=== PATIENT | male | born 1950 | race Caucasian/White ===

== ENCOUNTER 2018-12-03 08:38 | Observation (INO) | payer MEDICARE, MEDICAID ==
[2018-12-03] MEDS ORDERED: ONDANSETRON HCL INJ/PF 4 MG/2 ML SDV IV ONE (09:42)
[2018-12-03] MEDS ORDERED: NORMAL SALINE 1000 ML 1,000 ML IV ONE ×2 (09:42→13:36)
[2018-12-03] MEDS ORDERED: MORPHINE SULFATE 10 MG/ML INJ IV ONE ×2 (09:42→13:27)
--- NOTE | 2018-12-03 10:14 | ER Document Report ---
ED General - General Chief Complaint: Chest Pain Stated Complaint: CHEST PAIN Time Seen by Provider: 12/03/18 09:02 Primary Care Provider: JUDIT JIMÉNEZ MD [Primary Care Provider] - Follow up as needed Mode of Arrival: Ambulatory Information source: Patient TRAVEL OUTSIDE OF THE [place] IN LAST 30 DAYS: No - HPI Notes: Patient is a 68-year-old with history of diabetes and hypercholesterolemia and chronic constipation presents to the emergency department with report of no bowel movement for the last 3 days with initially diffuse upper abdominal pain that went to the right upper quadrant and now seems to radiate somewhat to the right lower chest. The patient denies any difficulty breathing or fever. He did have some nausea and vomiting last night. He does report abdominal bloating. He reports no significant back pain. No fever or chills or dysuria or hematuria. - Related Data Allergies/Adverse Reactions: Penicillins Allergy (Verified 12/03/18 08:39) Past Medical History - General Information source: Patient - Social History Smoking Status: Never Smoker Frequency of alcohol use: Rare Drug Abuse: None Lives with: Family Family History: None Patient has suicidal ideation: No Patient has homicidal ideation: No - Past Medical History Cardiac Medical History: Reports: Hx Hypertension Denies: Hx Coronary Artery Disease Pulmonary Medical History: Denies: Hx Asthma Endocrine Medical History: Reports: Hx Diabetes Mellitus Type 2 Renal/ Medical History: Denies: Hx Peritoneal Dialysis Skin Medical History: Reports Hx Psoriasis Past Surgical History: Reports: Hx Orthopedic Surgery - left shoulder, L TKR, back surgery - Immunizations Hx Diphtheria, Pertussis, Tetanus Vaccination: Yes Review of Systems - Review of Systems -: Yes All other systems reviewed and negative Physical Exam - Vital signs Vitals: Temp Pulse Resp BP Pulse Ox 98 F 88 20 117/72 95 12/03/18 08:49 12/03/18 08:49 12/03/18 08:49 12/03/18 08:49 12/03/18 08:49 - Notes Notes: PHYSICAL EXAMINATION: GENERAL: Well-appearing, well-nourished and in no acute distress. HEAD: Atraumatic, normocephalic. 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 ENT: Nares patent, oropharynx clear without exudates. Moist mucous membranes. NECK: Normal range of motion, supple without lymphadenopathy LUNGS: Breath sounds clear to auscultation bilaterally and equal. No wheezes rales or rhonchi. HEART: Regular rate and rhythm without murmurs ABDOMEN: Soft, mildly distended, tender through the upper abdomen right greater than left. No guarding, no rebound. No masses appreciated. Positive Brito's. Patient's pain extends to the right lower chest wall region that he describes. Musculoskeletal: Normal range of motion, no pitting or edema. No cyanosis. NEUROLOGICAL: Cranial nerves grossly intact. Normal speech, normal gait. Normal sensory, motor exams PSYCH: Normal mood, normal affect. SKIN: Warm, Dry, normal turgor, no rashes or lesions noted. Course - Re-evaluation Re-evalutation: 12/03/18 11:02 Patient was given normal saline bolus and Zofran and morphine with some relief of his discomfort. 12/03/18 15:33 CT scan showed evidence for acute cholecystitis and patient's total bilirubin was elevated, but his direct bilirubin was low, suggestive more of a cirrhotic process than a obstructive process. The patient was rehydrated with 2 L of normal saline for his dehydration and an ultrasound was ordered. Patient agreed to admission for further evaluation and care. Discussion was undertaken with surgery Dr. Ferrari, who agreed to see and evaluate the patient further. White blood cell count was elevated and the patient was given IV Mefoxin after blood cultures were taken. Patient had a penicillin allergy. Findings would fit for acute cholecystitis. No evidence for significant diabetic complication or acute kidney injury. No evidence for perforation at this time. No evidence for pancreatitis. No evidence for acute CT or ischemia. - Vital Signs Vital signs: Temp Pulse Resp BP Pulse Ox 98 F 88 28 H 114/56 L 93 12/03/18 08:49 12/03/18 08:49 12/03/18 15:01 12/03/18 15:01 12/03/18 15:01 - Laboratory Result Diagrams: 12/03/18 09:25 12/03/18 09:25 Laboratory results interpreted by me: 12/03/18 12/03/18 12/03/18 09:25 09:25 10:00 WBC 20.1 H Plt Count 127 L Seg Neuts % (Manual) 88 H Lymphocytes % (Manual) 7 L Abs Neuts (Manual) 17.7 H Sodium 136.9 L Glucose 175 H Total Bilirubin 2.8 H Direct Bilirubin 0.7 H Lipase 17.8 L Urine Protein 100 H Urine Ketones TRACE H - EKG Interpretation by Me EKG shows normal: Sinus rhythm Additional EKG results interpreted by me: 12/03/18 11:03 EKG as interpreted by me showed normal sinus rhythm heart rate of 71. There is no gross evidence for acute CT or ischemia noted. Critical Care Note - Critical Care Note Total time excluding time spent on procedures (mins): 37 Discharge - Discharge Clinical Impression: Acute cholecystitis, Dehydration Condition: Stable Disposition: ADMITTED INPATIENT Admitting Provider: Surgicalist Unit Admitted: OR Referrals: JUDIT JIMÉNEZ MD [Primary Care Provider] - Follow up as needed
[2018-12-03 10:19] LABS: HEMATOCRIT 46.3 % (37.9-51.0); HEMOGLOBIN 15.7 g/dL (13.5-17.0); MEAN CORPUSCULAR HEMOGLOBIN 31.4 pg (27.0-33.4); MEAN CORPUSCULAR HGB CONC 33.9 g/dL (32.0-36.0); MEAN CORPUSCULAR VOLUME 93 fl (80-97); WHITE BLOOD COUNT 20.1 10^3/uL (4.0-10.5)
[2018-12-03 10:20] LABS: ALANINE AMINOTRANSFERASE 36 U/L (21-72); ALBUMIN 4.4 g/dL (3.5-5.0); ALKALINE PHOSPHATASE 84 U/L (38-126); ANION GAP 12 (5-19); ASPARTATE AMINO TRANSFERASE 27 U/L (17-59); BILIRUBIN,DIRECT 0.7 mg/dL (0.0-0.4); BILIRUBIN,TOTAL 2.8 mg/dL (0.2-1.3); BLOOD UREA NITROGEN 17 mg/dL (7-20); CARBON DIOXIDE 27 mmol/L (22-30); CHLORIDE 98 mmol/L (98-107); GLUCOSE 175 mg/dL (75-110); LIPASE 17.8 U/L (23-300); POTASSIUM 4.5 mmol/L (3.6-5.0); SODIUM 136.9 mmol/L (137-145); TOTAL PROTEIN 7.5 g/dL (6.3-8.2)
[2018-12-03 10:25] LABS: APPEARANCE,URINE SLIGHTLY-CLOUDY; BILIRUBIN,URINE NEGATIVE (NEGATIVE); GLUCOSE, URINE NEGATIVE (NEGATIVE); KETONES,URINE TRACE mg/dL (NEGATIVE); LEUKOCYTE ESTERASE,URINE NEGATIVE (NEGATIVE); NITRITE,URINE NEGATIVE (NEGATIVE); PROTEIN,URINE 100 mg/dL (NEGATIVE); URINE SPECIFIC GRAVITY 1.019; UROBILINOGEN,URINE NEGATIVE mg/dL (<2.0)
[2018-12-03 10:27] LABS: COLOR,URINE DARK YELLOW
[2018-12-03 10:38] LABS: ABSOLUTE LYMPHOCYTES# (MANUAL) 1.6 10^3/uL (0.5-4.7); ABSOLUTE MONOCYTES # (MANUAL) 0.8 10^3/uL (0.1-1.4); BASOPHILS % (MANUAL) 0 % (0-2); EOSINOPHILS % (MANUAL) 0 % (0-6); LYMPHOCYTES % (MANUAL) 7 % (13-45); MONOCYTES % (MANUAL) 4 % (3-13); SEGMENTED NEUTROPHILS % (MAN) 88 % (42-78); TOTAL CELLS COUNTED 100
[2018-12-03 10:39] LABS: ANISOCYTOSIS SLIGHT; PLATELET CLUMPS PRESENT; PLATELET COMMENT DECREASED; PLATELET COUNT 127 10^3/uL (150-450); POLYCHROMASIA SLIGHT; TOXIC GRANULATION SLIGHT
[2018-12-03] MEDS ORDERED: SUCCINYLCHOLINE CHLORIDE INJ 200 MG/10 ML VIAL ONE (11:31)
[2018-12-03] MEDS ORDERED: ROCURONIUM BROMIDE INJ 50 MG/5 ML VIAL IV ONE (11:31)
[2018-12-03] MEDS ORDERED: METOCLOPRAMIDE HCL INJ/PF 10 MG/2 ML SDV ONE (11:31)
[2018-12-03] MEDS ORDERED: KETOROLAC TROMETHAMINE 60 MG/2 ML SDV ONE (11:31)
[2018-12-03] MEDS ORDERED: ONDANSETRON HCL INJ/PF 4 MG/2 ML SDV ONE (11:31)
--- NOTE | 2018-12-03 13:16 | RADIOLOGY REPORT (SQ) ---
EXAM DESCRIPTION: CT ABD/PELVIS WITH IV ORAL COMPLETED DATE/TIME: 12/03/2018 12:58 pm REASON FOR STUDY: abd pain, worse RUQ, constipation COMPARISON: None. TECHNIQUE: CT scan of the abdomen and pelvis performed using helical scanning technique with dynamic intravenous contrast injection. No oral contrast. Images reviewed with lung, soft tissue, and bone windows. Reconstructed coronal and sagittal MPR images reviewed. Delayed images for evaluation of the urinary system also acquired. All images stored on PACS. All CT scanners at this facility use dose modulation, iterative reconstruction, and/or weight based d osing when appropriate to reduce radiation dose to as low as reasonably achievable (ALARA). [facility]: Dose Right [facility]: CareDose [facility]: Dose Right [facility]: Teradose 4D [facility]: Topcom [place] CONTRAST TYPE AND DOSE: contrast/concentration: Isovue 350.00 mg/ml; Total Contrast Delivered: 100.0 ml; Total Saline Delivered: 72.0 ml RENAL FUNCTION: Creatinine 1.2 RADIATION DOSE: CT Rad equipment meets quality standard of care and radiation dose reduction techniq ues were employed. CTDIvol: 19.8 - 21.0 mGy. DLP: 2547 mGy-cm.. LIMITATIONS: None. FINDINGS: On coronal images 32 through 45, and axial images 27 through 42, there is right upper quad rant soft tissue stranding from inflammation in the fat around the gallbladder, hepatic flexure of co cory, and 2nd portion of the duodenum. Trace pericholecystic fluid is seen in the tissue planes betwe en the liver and gallbladder. Gallbladder wall appears thickened by CT. No radiodense calculi are s een. Findings are worrisome for acute cholecystitis. Duodenitis with secondary inflammatory change of the gallbladder is considered possible but less likely. LOWER CHEST: No significant findings. No nodules or infiltrates. LIVER: Fatty liver with focal sparing at the gallbladder fossa. No focal liver masses. Normal wagner l vein enhancement. SPLEEN: Normal size. No focal lesions. PANCREAS: No masses. No significant calcifications. No adjacent inflammation or peripancreatic fluid collections. Pancreatic duct not dilated. GALLBLADDER: As above ADRENAL GLANDS: No significant masses or asymmetry. RIGHT KIDNEY AND URETER: No solid masses. 8 mm and 10 mm cysts, right lower pole kidney. No signifi cant calcifications. No hydronephrosis or hydroureter. LEFT KIDNEY AND URETER: No solid masses. No significant calcifications. No hydronephrosis or hydr oureter. AORTA AND VESSELS: No aneurysm. No dissection. Renal arteries, SMA, celiac without stenosis. RETROPERITONEUM: No retroperitoneal adenopathy, hemorrhage or masses. BOWEL AND PERITONEAL CAVITY: Patient drank oral contrast which is present in small bowel. Oral contr ast has not yet reached the colon. Trace right upper quadrant free fluid under the hemidiaphragm and in the gallbladder fossa. No free intraperitoneal air. Large amount of stool throughout the colon. No CT evidence of bowel obstruction. No colonic diverticulosis/colonic diverticulitis. APPENDIX: Normal. PELVIS: No mass. No free fluid. Normal bladder. ABDOMINAL WALL: Fat containing right inguinal hernia best shown on coronal image 36 BONES: Discectomy and fusion at L5-S1. OTHER: No other significant finding. IMPRESSION: Findings worrisome for acute cholecystitis. TECHNICAL DOCUMENTATION: JOB ID: [id number] Quality ID # [id number]: Final reports with documentation of one or more dose reduction techniques (e.g., Au tomated exposure control, adjustment of the mA and/or kV according to patient size, use of iterative reconstruction technique) 2010 [employer]- All Rights Reserved Reading location - IP/workstation name: [email or web address]
[2018-12-03] MEDS ORDERED: CEFOXITIN INJ 1 GM VIAL IV ONE (13:41)
--- NOTE | 2018-12-03 14:58 | EKG REPORT ---
SEVERITY:- ABNORMAL ECG - SINUS RHYTHM NONSPECIFIC T ABNORMALITIES, LATERAL LEADS : Confirmed by: Lowell Shahid 03-Dec-2018 14:57:45
[2018-12-03] MEDS ORDERED: MIDAZOLAM 2 MG/2 ML INJ ONE (15:08)
[2018-12-03] MEDS ORDERED: FENTANYL CITRATE INJ/PF 250 MCG/5 ML AMPULE ONE (15:08)
[2018-12-03] MEDS ORDERED: LIDOCAINE 2% INJ-PF (20 MG/ML) 10 ML AMPUL ONE (15:08)
[2018-12-03] MEDS ORDERED: DEXMEDETOMIDINE INJ 80 MCG/20 ML VIAL IV ONE (15:09)
[2018-12-03] MEDS ORDERED: PROPOFOL INJ 200 MG/20 ML VIAL IV ONE (15:09)
[2018-12-03] MEDS ORDERED: BUPIVACAINE HCL 0.25% /EPINEPHRINE INJ/PF 30 ML SDV ONE (15:58)
[2018-12-03] MEDS ORDERED: DIPHENHYDRAMINE HCL 50 MG/ML VIAL IV PRN (16:05)
[2018-12-03] MEDS ORDERED: FENTANYL CITRATE INJ/PF 100 MCG/2 ML AMPUL IV PRN ×3 (16:05)
[2018-12-03] MEDS ORDERED: MORPHINE SULFATE 10 MG/ML INJ IV PRN ×2 (16:05→18:06)
[2018-12-03] MEDS ORDERED: PROMETHAZINE HCL INJ 25 MG/1 ML VIAL IV PRN ×2 (16:05)
[2018-12-03] MEDS ORDERED: MEPERIDINE HCL/PF INJ 25 MG/1 ML DISP.SYRIN IV PRN (16:05)
[2018-12-03] MEDS ORDERED: EPHEDRINE SULFATE INJ 50 MG/1 ML AMPULE ONE (16:10)
[2018-12-03] MEDS ORDERED: SUGAMMADEX SODIUM 200 MG/2 ML SDV IV ONE (16:10)
[2018-12-03] MEDS ORDERED: ONDANSETRON HCL INJ/PF 4 MG/2 ML SDV IV PRN ×2 (16:25→18:10)
[2018-12-03] MEDS ORDERED: OXYCODONE-ACETAMINOPHEN 5-325 MG TABLET PO PRN (18:07)
[2018-12-03] MEDS ORDERED: NORMAL SALINE 1000 ML 1,000 ML IV PRN (18:10)
--- NOTE | 2018-12-03 21:40 | OPERATIVE REPORT E ---
Operative Report NAME: SUZAN DAVEY : 1950 AGE: 68Y DATE OF SURGERY: 12/03/2018 ROOM: 212 PREOPERATIVE DIAGNOSIS: ACUTE CHOLECYSTITIS. POSTOPERATIVE DIAGNOSIS: ACUTE CHOLECYSTITIS. OPERATION: Laparoscopic cholecystectomy. SURGEON: DEJA BONILLA M.D. ANESTHESIA: General. INDICATION: This is a 68-year-old diabetic male complained of right upper quadrant pain last night associated with nausea. He came to the ED where a CT scan of the abdomen revealed acute cholecystitis but no definite stones. He was very tender in the right upper quadrant. His white count is slightly elevated about 20,000 and LFTs are normal but bilirubin is about 2.5. He used to drink heavily until 20 years ago. The patient is in excruciating pain. DESCRIPTION OF PROCEDURE: After adequate general anesthesia the patient was placed in the supine position and the abdomen prepped and draped in the usual sterile fashion. Appropriate timeout was then called. Next an infraumbilical incision made and the fascia grasped with Shagufta clamps and divided and a Talisha trocar inserted through the fascia to the abdominal cavity. Two sutures of 0 Vicryl were placed on each side of the trocar clamps and the fascia. The clamps were released. Next the balloon on the Talisha was inflated and CO2 insufflated. Three other trocars were placed at 12 mm in the subxiphoid and two 5 mm in the right upper quadrant. The gallbladder was noted to be markedly distended and inflamed and edematous. The top part of the gallbladder appeared to be dusky. The gallbladder needed to be decompressed with a long needle and aspirated some greenish bile. Some of the bile was sent for C and S. Next the end of the gallbladder was grasped where it was stuck with a needle and pulled over the liver. The infundibulum was then grasped but quite difficult to visualize the cystic duct. Because of this a fourth trocar was placed using 5 mm on the left upper quadrant between the xiphoid and the umbilical ports. A fan retractor was then placed through the trocar and omentum, pushed down and gave us better visibility of the cystic duct. The cystic duct was then dissected with a [place] dissector as well as the cystic artery. After the angle of safety was established the cystic duct was then clipped with hemoclips, about 3 clips on the proximal side and 1 clip on the gallbladder side, and divided within the 2 distal clips. Cystic artery also clipped and then divided within the clip and the gallbladder using Harmonic felipe. The gallbladder was then dissected off the liver bed partly with the use of a Harmonic and partly through avulsion technique. The gallbladder then completely was removed off the liver bed and placed in an Endobag and pulled out through the umbilical fascial defect. The fascia needed to be extended about 5 mm distally to allow removal of the gallbladder, which was noted to be thickened wall but no palpable stones through the sac. Next trocars were put back and the liver bed inspected. There was some clots noted and this was then irrigated. A couple of areas of oozing were controlled with the use of spatula cautery. A piece of Surgicel was then placed over the liver bed to ensure hemostasis. All the trocars were removed and no active bleeding noted. CO2 allowed to come out of the trocar sites. The fascial defect of the infraumbilical area was then closed with a [id number] suture using 0 Vicryl and 2 stay sutures tied over for better closure. Anesthesia instilled over the fascia and over the incision sites. All the incisions were then closed with running subcuticular 4-0 and 3-0 Vicryl undyed. Steri-Strips placed over the operative site. Needle, instrument, and sponge count were all correct and estimated blood loss was no more than 20 mL. The patient brought to the recovery room, extubated, in satisfactory condition. DICTATING PHYSICIAN: DEJA BONILLA M.D. [id number] PHY#: [id number] ID: [id number] JOB#: [id number] ACCT: [id number] cc:DEJA BONILLA M.D. >
[2018-12-03] MEDS ORDERED: CEFOXITIN 1 GM/D5W RTU 1 GM/50 ML RTUPB IV SCH (22:00)
[2018-12-03] MEDS ORDERED: CEFOXITIN INJ 1 GM VIAL ONE (22:24)
[2018-12-03] MEDS: KETOROLAC TROMETHAMINE INJ/PF 30 MG/1 ML SDV IV SCH (23:08)
[2018-12-04] MEDS: KETOROLAC TROMETHAMINE INJ/PF 30 MG/1 ML SDV IV SCH (05:56)
--- NOTE | 2018-12-04 08:44 | HISTORY AND PHYSICAL E ---
History and Physical NAME: SUZAN DAVEY : 1950 AGE: 68Y ADMITTED: 12/03/2018 ROOM: 212 CHIEF COMPLAINT: Abdominal pain. HISTORY OF PRESENT ILLNESS: This is a 68-year-old male, type-2 diabetic, complained of right upper quadrant pains the day prior to coming to ED. Pain is associated with nausea. A CT scan of the abdomen and pelvis in the ED showed acute cholecystitis but no stones. His white count is elevated to about 20,000. All of his LFTs are normal. His bilirubin was 2.5 but he used to drink heavily until about 20 years ago. PAST HISTORY/SURGICAL HISTORY: back surgery. Takes glyburide for his diabetes. SOCIAL HISTORY: He used to drink heavily until 20 years ago. Denies smoking. 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 FAMILY HISTORY: Noncontributory. REVIEW OF SYSTEMS: As in HPI. Denies any fever or chills. No chest pains or shortness of breath, though whenever he takes a deep breath, the pains will be more prominent in the epigastric area and on the subphrenic areas. No balance problems. No dysuria. No diarrhea or constipation. ALLERIGIES: None known. PHYSICAL EXAMINATION: GENERAL: Well-developed, slightly overweight, 68-year-old male, alert and oriented, complaining of severe right upper quadrant pains. NECK: Supple. No thyromegaly. Conjunctiva anicteric. LUNGS: Clear. HEART: Regular sinus rhythm. ABDOMEN: Soft with tenderness in the right upper quadrant epigastric areas. EXTREMITIES: No edema. IMPRESSION: 1. DIABETES MELLITUS TYPE-2. 2. ACUTE ACALCULOUS CHOLECYSTITIS. PLAN: 1. Started IV antibiotics. 2. Hydrate. 3. To OR for laparoscopic cholecystectomy. DICTATING PHYSICIAN: DEJA BONILLA M.D. [id number] PHY#: [id number] ID: [id number] JOB#: [id number] ACCT: [id number] cc:DEJA BONILLA M.D. >
[2018-12-04 08:47] VITALS: BP 116/53
--- NOTE | 2018-12-04 08:49 | DISCHARGE SUMMARY E ---
Discharge Summary NAME: SUZAN DAVEY : 1950 AGE: 68Y ADMITTED: 12/03/2018 DISCHARGED: 12/04/2018 PROCEDURE DONE: Laparoscopic cholecystectomy 12/03/18. SURGEON: David Ferrari MD FINAL DIAGNOSIS: Acute cholecystitis. HOSPITAL COURSE: This is a 68-year-old male with right upper quadrant pains the day prior to admission. He had some nausea. A CAT scan of the abdomen revealed acute cholecystitis but no stones. He is a diabetic on glyburide. Postoperatively he did very well, tolerating a regular diet on the day of discharge. All incisions are clean and passing flatus. He was then discharged on 12/04/18 with: FINAL DIAGNOSIS: 1. DIABETES MELLITUS TYPE-2. 2. ACALCULOUS CHOLECYSTITIS. PLAN: Patient was given a prescription for Percocet 5/325 one every 8 hours p.r.n. for pain x 6 pills. He was advised not to do any lifting more than 10 to 15 pounds for the next 2 weeks and arrangements will be made for him to be followed up in the surgical clinic in 2 weeks. DICTATING PHYSICIAN: DAVID FERRARI M.D. [id number] PHY#: [id number] ID: [id number] JOB#: [id number] ACCT: [id number] cc:DAVID FERRARI M.D. >
[2018-12-04] MEDS ORDERED: CEFOXITIN 1 GM/D5W RTU 1 GM/50 ML RTUPB IV SCH (10:00)
[2018-12-04] MEDS ORDERED: KETOROLAC TROMETHAMINE INJ/PF 30 MG/1 ML SDV IV SCH (12:00)
== END 2018-12-04 09:16 | disposition home or self-care (01) ==
LOC: ER 08:38 → 2N 18:22
PROVIDERS: ADMIT Surgery; ATTEND Surgery
PROC: 0FT44ZZ Resection of Gallbladder, Percutaneous Endoscopic Approach (ICD-10-PCS; principal; 2018-12-03 15:00)
DX: K81.0 Acute cholecystitis (principal); E11.9 Type 2 diabetes mellitus without complications; E66.3 Overweight; E78.00 Pure hypercholesterolemia, unspecified; K59.09 Other constipation; I10 Essential (primary) hypertension; L40.9 Psoriasis, unspecified; Z96.652 Presence of left artificial knee joint; H54.62 Unqualified visual loss, left eye, normal vision right eye; E86.0 Dehydration; Z68.37 Body mass index [BMI] 37.0-37.9, adult; Z79.84 Long term (current) use of oral hypoglycemic drugs; Z88.0 Allergy status to penicillin
CPT/HCPCS: 47562; 93005; 96376; 99291; 96361; 96375; 96365; 36415; 87040; 87070; 87205; 82962; 83690; 85025; 87075; 87077; 80053; 81001; 84484; 88304 ×2; 74177; 93010; 00790; J2250; J3490 ×6; J0694 ×2; J1885 ×3; J3010; J2765; J2270; A9270; J0330; J2405; J7030; J2704; 790; G0378; G0379

== ENCOUNTER 2019-12-04 15:04 | Emergency (ER) | payer MEDICARE, MEDICAID ==
[2019-12-04 18:00] LABS: APPEARANCE,URINE SLIGHTLY-CLOUDY; BILIRUBIN,URINE NEGATIVE (NEGATIVE); COLOR,URINE YELLOW; GLUCOSE, URINE >=500 mg/dL (NEGATIVE); KETONES,URINE 80 mg/dL (NEGATIVE); LEUKOCYTE ESTERASE,URINE NEGATIVE (NEGATIVE); NITRITE,URINE NEGATIVE (NEGATIVE); PROTEIN,URINE >=500 mg/dL (NEGATIVE); URINE SPECIFIC GRAVITY 1.042; UROBILINOGEN,URINE NEGATIVE mg/dL (<2.0)
[2019-12-04 18:24] LABS: ABSOLUTE LYMPHOCYTES (AUTO) 0.8 10^3/uL (0.5-4.7); ABSOLUTE MONOCYTES (AUTO) 0.9 10^3/uL (0.1-1.4); ABSOLUTE NEUT (AUTO) 9.4 10^3/uL (1.7-8.2); BASOPHILS % (AUTO) 0.2 % (0-2); HEMATOCRIT 48.8 % (37.9-51.0); HEMOGLOBIN 16.7 g/dL (13.5-17.0); LYMPHOCYTES % (AUTO) 7.5 % (13-45); MEAN CORPUSCULAR HEMOGLOBIN 32.2 pg (27.0-33.4); MEAN CORPUSCULAR HGB CONC 34.3 g/dL (32.0-36.0); MEAN CORPUSCULAR VOLUME 94 fl (80-97); MONOCYTES % (AUTO) 8.1 % (3-13); PLATELET COUNT 203 10^3/uL (150-450); SEGMENTED NEUTROPHILS % (AUTO) 84.2 % (42-78); TOTAL CELLS COUNTED % (AUTO) 100 %; WHITE BLOOD COUNT 11.2 10^3/uL (4.0-10.5)
--- NOTE | 2019-12-04 18:28 | ER Document Report ---
ED General - General Chief Complaint: Abdominal Pain Stated Complaint: ABDOMINAL PAIN,HEADACHE Time Seen by Provider: 12/04/19 17:30 Primary Care Provider: JUDIT JIMÉNEZ MD [Primary Care Provider] - Follow up as needed TRAVEL OUTSIDE OF THE [place] IN LAST 30 DAYS: No - HPI Notes: Patient is a [age]-year-old male who presents to the emergency department for evaluation of back pain, abdominal pain, decreased appetite, weight loss. He states that over the last month he has not really been eating or drinking much. He states everything tastes strange. He says even water has an odd taste. He states he is lost 30 pounds in the last 30 days. He states he just feels weak a ll over. The patient also has chronic back pain. He has been referred on to pain management. He states that he just started physical therapy, his back is hurting more. Pain now radiates from his back and into his abdomen. He is still passing gas. He is having small bowel movements, he attributes the smallness to the fact that he is not really eating much. He is still urinating. - Related Data Allergies/Adverse Reactions: Penicillins Allergy (Verified 12/03/18 08:39) Past Medical History - General Information source: Patient - Social History Smoking Status: Never Smoker Frequency of alcohol use: Rare Family History: None - Past Medical History Cardiac Medical History: Reports: Hx Hypercholesterolemia, Hx Hypertension Denies: Hx Coronary Artery Disease Pulmonary Medical History: Denies: Hx Asthma Endocrine Medical History: Reports: Hx Diabetes Mellitus Type 2 Renal/ Medical History: Denies: Hx Peritoneal Dialysis Musculoskeletal Medical History: Reports Hx Arthritis - Hands & Ankles Skin Medical History: Reports Hx Psoriasis Past Surgical History: Reports: Hx Cholecystectomy, Hx Orthopedic Surgery - left shoulder, L TKR, back surgery - Immunizations Hx Diphtheria, Pertussis, Tetanus Vaccination: Yes Review of Systems - Review of Systems Constitutional: See HPI Gastrointestinal: See HPI -: Yes All other systems reviewed and negative Physical Exam - Notes Notes: Vital signs reviewed, please refer to chart. Head is normocephalic, atraumatic. Pupils equal round, reactive to light. Neck is supple without meningismus. Heart is regular rate and rhythm. Lungs are clear to auscultation bilaterally. Abdomen is soft, nontender, normoactive bowel sounds throughout. Extremities without cyanosis, clubbing. Posterior calves are nontender. Peripheral pulses are equal. Skin is warm and dry. Patient is awake, alert, neurological exam is nonfocal. Course - Re-evaluation Re-evalutation: 12/04/19 18:27 Patient presents to the emergency department for evaluation. It seems that his primary concern is his chronic back pain. I explained to the patient I could treat him with muscle relaxers for that, but I did not feel that narcotic medication was appropriate. He is already being referred on to pain management. In regards to his weakness and decreased p.o. appetite, I explained to him that he needs to see primary care. I will check him for significant electrolyte abnormalities. We will also check him for chest x-ray. He is a non-smoker, but certainly malignancy would be on the differential in a patient is having difficulty eating and significant weight loss. I explained this to the patient as well and he voiced understanding. Otherwise he is currently stable, we will continue to monitor. 12/04/19 20:07 Patient's laboratory investigations revealed mildly abnormal LFTs. Otherwise, there is no significant abnormality. Patient serial abdominal exams are entirely nontender. I explained to the patient that changes in appetite, unexplained weight loss, definitely will require further evaluation as an outpatient. I also believe that his chronic back pain is causing most of his belly pain, but this should be followed up as well. On further questioning, patient admitted that he was concerned he could have COVID based on the fact that his food tasted differently. He does not really have any other signs or symptoms. At this point I will did not perform COVID testing. He will be contacted with results. He voiced understanding to this. He is to return to [facility] ED with worsening or new concerning symptoms of any sort. - Laboratory Result Diagrams: 12/04/19 16:33 12/04/19 16:33 Laboratory results interpreted by me: 12/04/19 12/04/19 12/04/19 16:30 16:33 16:33 WBC 11.2 H Lymph % (Auto) 7.5 L Absolute Neuts (auto) 9.4 H Seg Neutrophils % 84.2 H Sodium 135.8 L Glucose 147 H Total Bilirubin 1.6 H Direct Bilirubin 0.5 H ALT 61 H Alkaline Phosphatase 131 H Urine Protein >=500 H Urine Glucose (UA) >=500 H Urine Ketones 80 H Urine Blood MODERATE H - Diagnostic Test Radiology reviewed: Reports reviewed Radiology results interpreted by me: 12/04/19 20:08 Chest X-Ray 12/04/19 18:20 IMPRESSION: NO ACUTE RADIOGRAPHIC FINDING IN THE CHEST. Discharge - Discharge Clinical Impression: Recent unexplained weight loss, Abnormal liver function tests, Suspected COVID- 19 virus infection, Right sided abdominal pain Condition: Stable Disposition: HOME, SELF-CARE Instructions: Abdominal Pain ([facility]) Additional Instructions: No clear cause was found for your diminished appetite, change in taste, or weight loss today. You also have abnormal liver functions. It is very important that you follow-up with your primary care provider in regards to these issues. You have also been tested today for COVID-19. Please self isolate until results are reported. If you develop worsening or new concerning symptoms of any sort, return immediately to the emergency department for evaluation. Otherwise, follow-up with your primary care provider this week. Referrals: JUDIT JIMÉNEZ MD [Primary Care Provider] - Follow up as needed
[2019-12-04 18:36] LABS: ALBUMIN 4.1 g/dL (3.5-5.0); ALKALINE PHOSPHATASE 131 U/L (38-126); ANION GAP 12 (5-19); ASPARTATE AMINO TRANSFERASE 42 U/L (17-59); BILIRUBIN,DIRECT 0.5 mg/dL (0.0-0.4); BILIRUBIN,TOTAL 1.6 mg/dL (0.2-1.3); BLOOD UREA NITROGEN 20 mg/dL (7-20); CALCIUM 9.3 mg/dL (8.4-10.2); CARBON DIOXIDE 25 mmol/L (22-30); CHLORIDE 99 mmol/L (98-107); GLUCOSE 147 mg/dL (75-110); POTASSIUM 4.3 mmol/L (3.6-5.0); TOTAL PROTEIN 7.4 g/dL (6.3-8.2)
--- NOTE | 2019-12-04 19:00 | RADIOLOGY REPORT (SQ) ---
EXAM DESCRIPTION: CHEST SINGLE VIEW IMAGES COMPLETED DATE/TIME: 12/04/2019 6:51 pm REASON FOR STUDY: weakness COMPARISON: None. EXAM PARAMETERS: NUMBER OF VIEWS: One view. TECHNIQUE: Single frontal radiographic view of the chest acquired. RADIATION DOSE: NA LIMITATIONS: None. FINDINGS: LUNGS AND PLEURA: No opacities, masses or pneumothorax. No pleural effusion. MEDIASTINUM AND HILAR STRUCTURES: No masses. Contour normal. HEART AND VASCULAR STRUCTURES: Heart normal in size. Normal vasculature. BONES: No acute findings. HARDWARE: None in the chest. OTHER: No other significant finding. IMPRESSION: NO ACUTE RADIOGRAPHIC FINDING IN THE CHEST. TECHNICAL DOCUMENTATION: JOB ID: [id number] 2010 [employer]- All Rights Reserved Reading location - IP/workstation name: [email or web address]
[2019-12-04] MEDS ORDERED: IBUPROFEN 600 MG TABLET PO ONE (20:30)
[2019-12-04 20:32] VITALS: BP 157/70
== END 2019-12-04 20:37 | disposition home or self-care (01) ==
LOC: ER 15:04
DX: U07.1 COVID-19 (principal); R63.4 Abnormal weight loss; R94.5 Abnormal results of liver function studies; R51 Headache; R10.9 Unspecified abdominal pain; Z20.828 Contact with and (suspected) exposure to other viral communicable diseases; G89.29 Other chronic pain; M54.9 Dorsalgia, unspecified; E11.9 Type 2 diabetes mellitus without complications; E78.00 Pure hypercholesterolemia, unspecified; I10 Essential (primary) hypertension; Z88.0 Allergy status to penicillin
CPT/HCPCS: 99284; 36415; 83690; 85025; 80053; 81001; 71045; U0003; A9270; C9803; 87635

== ENCOUNTER 2020-04-06 07:58 | Day surgery (SDC) | payer MEDICARE, MEDICAID ==
[~2020-04-06 07:58] MED LIST: PROPOFOL INJ 200 MG/20 ML VIAL IV ONE
--- NOTE | 2020-04-06 10:11 | Operative Report ---
Operative Report DATE OF SURGERY: 04/06/20 Operative Report: The risk, benefits and alternatives of the procedure including the risk of bleeding, perforation requiring surgery have been explained to the patient in detail and informed consent has been obtained. Patient is taken back to the endoscopy suite and placed in a left, lateral decubital position. Timeout was called. Propofol medication is administered. Rectal examination is done which did not reveal any masses, tears or fissures. An Olympus videoscope was introduced into the patient's rectum. Scope was then carefully advanced all the way to the cecum. Cecum was identified by the usual anatomical landmarks including the ileocecal valve as well as the appendiceal office. Photodocumentation is obtained. Scope was then sequentially pulled back via the various segments of the colon including the ascending colon, hepatic flexure, transverse colon, splenic flexure, descending colon finding to the rectosigmoid portions of the colon. Retroflexion maneuver is performed. PREOPERATIVE DIAGNOSIS: Colorectal cancer screening POSTOPERATIVE DIAGNOSIS: Transverse colon polyp removed via biopsy forceps. Internal hemorrhoids OPERATION: Colonoscopy with biopsy SURGEON: STEVE US ANESTHESIA: LMAC TISSUE REMOVED OR ALTERED: As noted above. COMPLICATIONS: None. ESTIMATED BLOOD LOSS: None. INTRAOPERATIVE FINDINGS: As noted above. PROCEDURE: Patient tolerated the procedure well. No immediate postprocedure complications are noted. Patient is discharged in good condition. Discharge date 04/06/2020. Discharge diet: Regular. Discharge activity: Regular. 2 to 3-week follow-up to discuss findings. Patient is instructed to call the office or proceed to the emergency room should there be any further problems or questions. Wait on the pathology. Depending on the pathology could either have a 5 to 10-year surveillance colonoscopy.
[2020-04-06 10:21] VITALS: BP 135/67
== END 2020-04-06 10:32 | disposition home or self-care (01) ==
LOC: END 07:58
PROVIDERS: ATTEND Internal Medicine Gastroenterology
DX: Z12.11 Encounter for screening for malignant neoplasm of colon (principal); K63.5 Polyp of colon; K64.8 Other hemorrhoids; I10 Essential (primary) hypertension; E78.00 Pure hypercholesterolemia, unspecified; E11.9 Type 2 diabetes mellitus without complications; K21.9 Gastro-esophageal reflux disease without esophagitis; Z68.33 Body mass index [BMI] 33.0-33.9, adult; Z88.0 Allergy status to penicillin; Z79.899 Other long term (current) drug therapy
CPT/HCPCS: 45380; 82962; 88305 ×2; J2704; 811